=== PATIENT | female | born 1975 | race Caucasian/White ===

== ENCOUNTER 2019-06-08 14:59 | Outpatient (CLI) | payer OTHER, SELFPAY ==
--- NOTE | ~2019-06-08 | MM_ITS ---
EXAMINATION: MM screening cody BI w mary jane HISTORY: Screening mammogram, family history of breast cancer in her mother and sister. TECHNIQUE: Craniocaudal and mediolateral oblique 3-D tomosynthesis images were obtained and synthetic 2-D images were generated. CAD analysis was submitted and interpreted. COMPARISON: 06/21/2018, 05/18/2018, 04/28/2018, 02/13/2017 BREAST PARENCHYMAL COMPOSITION: There are scattered areas of fibroglandular density. FINDINGS: Biopsy markers are present in the middle third of the upper outer quadrant of the right rodney ast. There is no evidence of suspicious mass, calcification, or architectural distortion to suggest m alignancy in either breast. There has been no suspicious interval change. IMPRESSION: 1. No mammographic evidence of malignancy. 2. Recommend routine screening mammography in one year. BI-RADS Category 1: Negative Reviewed, dictated and finalized at location A. HANDISE PLANNER
== END 2019-06-08 15:00 | disposition home or self-care (01) ==
LOC: ANHIMG 15:00
PROVIDERS: PCP Family Medicine; Visit Provider Nurse Practitioner Family
DX: Z12.31 Encounter for screening mammogram for malignant neoplasm of breast (principal)
CPT/HCPCS: 77063; 77067

== ENCOUNTER 2019-10-26 12:44 | Outpatient (CLI) | payer OTHER, SELFPAY ==
--- NOTE | ~2019-10-26 | MR_ITS ---
EXAMINATION: MR lumbar spine wo con EXAM DATE: 10/26/2019 13:26 INDICATION: Anesthesia of skin. TECHNIQUE: Multi-sequential, multiplanar MR images of the lumbar spine were obtained without contrast . Sagittal T1, T2, T2 fat saturation images. Axial T2 weighted images. Comparison is made to prior examination from 04/13/2008. FINDINGS: There is mild to moderate disc disease at L5-S1, mild disc disease at L4-5. There is rudime ntary S1-2 disc. The conus medullaris terminates at the L1/2 level and has normal signal intensity an d morphology. Vertebral body heights are maintained. The vertebral bodies are aligned in the AP dime nsion. Paraspinal soft tissue is unremarkable. Level by level evaluation: L1-L2: Disc does not extend beyond the endplate margin. Facet arthropathy: Mild. Neural foraminal stenosis: No stenosis. Central canal stenosis: No stenosis. L2-L3: Disc does not extend beyond the endplate margin. Facet arthropathy: Mild. Neural foraminal stenosis: No stenosis. Central canal stenosis: No stenosis. L3-L4: There is a minimal diffuse disc bulge with superimposed far left protrusion into the neural fo ramina causing some mass effect on the exiting L3 nerve root. There may be mild edema within this ne ural foramina, could indicate this recently developed. Facet arthropathy: Mild. Neural foraminal stenosis: Mild to moderate left, mild right. Central canal stenosis: Mild. L4-L5: There is a mild diffuse disc bulge asymmetric to the right Facet arthropathy: Mild bilateral. Neural foraminal stenosis: Mild right. Central canal stenosis: Mild. L5-S1: There is a mild diffuse disc bulge. Facet arthropathy: Mild to moderate bilateral. Neural foraminal stenosis: Mild to moderate left, mild right. Central canal stenosis: Mild. IMPRESSION: L3-4 far left disc protrusion causing some mass effect on the exiting L3 nerve root. Prob ably some inflammation/edema in this neural foramina as well. Could consider conservative treatment w ith anti-inflammatories given that there is only mild to moderate neural foraminal stenosis. Reviewed, dictated and finalized at location A. IMPRESSION: L3-4 far left disc protrusion causing some mass effect on the exiti ng L3 nerve root. Probably some inflammation/edema in this neural foramina as w ell. Could consider conservative treatment with anti-inflammatories given that there is only mild to moderate neural foraminal stenosis.
== END 2019-10-26 12:45 | disposition home or self-care (01) ==
LOC: ANHIMG 12:46
PROVIDERS: PCP Family Medicine; Visit Provider Nurse Practitioner Family
DX: R20.0 Anesthesia of skin (principal); M51.26 Other intervertebral disc displacement, lumbar region
CPT/HCPCS: 72148

== ENCOUNTER 2020-03-15 07:30 | Outpatient (CLI) | payer OTHER, SELFPAY ==
--- NOTE | ~2020-03-15 | US_ITS ---
EXAMINATION: US right upper quadrant EXAM DATE: 03/15/2020 08:26 INDICATION: Abnormal results of liver function studies . TECHNIQUE: Multiple grayscale and Doppler images of the abdomen right upper quadrant were obtained (b y a technologist who performed the scan) and subsequently reviewed. There is no prior study for lisa holm. FINDINGS: The pancreatic head and body are normal in appearance. The pancreatic tail is not visualized. Mildl y echogenic liver parenchyma, hepatic steatosis. There are no focal liver lesions identified. Ther e is no evidence of intrahepatic biliary duct dilation. Portal venous flow was seen in the hepatoped al, normal direction and has normal Doppler waveform. No right-sided hydronephrosis. Common bile duct measures 4 mm, which is normal. The gallbladder wall is normal in thickness, with ex pected amount of distention. No sonographic evidence of pericholecystic fluid. There is no cholelit hiases. Technologist performing exam reports patient did not demonstrate sonographic Shoemaker's sign. Please note that this sign is less reliable in patients who have received pain medication. IMPRESSION: 1. Hepatic steatosis. Reviewed, dictated and finalized at location A. R WORKER IMPRESSION: 1. Hepatic steatosis.
== END 2020-03-15 07:31 | disposition home or self-care (01) ==
PROVIDERS: PCP Family Medicine; Visit Provider Family Medicine
DX: K76.0 Fatty (change of) liver, not elsewhere classified (principal)
CPT/HCPCS: 76705

== ENCOUNTER 2020-11-07 08:32 | Outpatient (CLI) | payer OTHER, SELFPAY ==
--- NOTE | ~2020-11-07 | MM_ITS ---
EXAMINATION: MM screening cody BI w mary jane HISTORY: Screening mammogram, family history of breast cancer in her mother. TECHNIQUE: Craniocaudal and mediolateral oblique 3-D tomosynthesis images were obtained and synthetic 2-D images were generated. CAD analysis was submitted and interpreted. COMPARISON: 06/08/2019, 05/18/2018, 04/28/2018 BREAST PARENCHYMAL COMPOSITION: There are scattered areas of fibroglandular density. FINDINGS: There is no evidence of suspicious mass, calcification, or architectural distortion to sugg est malignancy in either breast. There has been no suspicious interval change. IMPRESSION: 1. No mammographic evidence of malignancy. 2. Recommend routine screening mammography in one year. BI-RADS Category 1: Negative Reviewed, dictated and finalized at location A.
== END 2020-11-07 08:33 | disposition home or self-care (01) ==
LOC: ANHIMG 08:34
PROVIDERS: PCP Family Medicine; Visit Provider Family Medicine
DX: Z12.31 Encounter for screening mammogram for malignant neoplasm of breast (principal)
CPT/HCPCS: 77063; 77067

== ENCOUNTER 2021-12-26 07:19 | Outpatient (CLI) | payer OTHER, SELFPAY ==
--- NOTE | ~2021-12-26 | MM_ITS ---
EXAMINATION: MM screening cody BI w mary jane HISTORY: Screening TECHNIQUE: Craniocaudal and mediolateral oblique 3-D tomosynthesis images were obtained and synthetic 2-D images were generated. CAD analysis was submitted and interpreted. COMPARISON: Comparison to multiple prior studies sequentially, with oldest reviewed study dated 02/01. BREAST PARENCHYMAL COMPOSITION: There are scattered areas of fibroglandular density. FINDINGS: There is a possible new mass in the subareolar location of the right breast adjacent to 2 s eparate biopsy clips. The left breast is stable without evidence for malignancy. IMPRESSION: 1. Possible new right subareolar breast mass. 2. Additional mammographic views and possible breast ultrasound are recommended. BI-RADS Category 0: Incomplete: Needs additional imaging evaluation. Reviewed, dictated and finalized at location A. IMPRESSION: 1. Possible new right subareolar breast mass. 2. Additional mammographic views and possible breast ultrasound are recommended . BI-RADS Category 0: Incomplete: Needs additional imaging evaluation.
== END 2021-12-26 07:20 | disposition home or self-care (01) ==
PROVIDERS: PCP Family Medicine; Visit Provider Family Medicine
DX: Z12.31 Encounter for screening mammogram for malignant neoplasm of breast (principal); R92.8 Other abnormal and inconclusive findings on diagnostic imaging of breast
CPT/HCPCS: 77063; 77067

== ENCOUNTER 2022-01-13 12:48 | Outpatient (CLI) | payer OTHER, SELFPAY ==
--- NOTE | ~2022-01-13 | MMUS_ITS ---
EXAMINATION: MM diagnostic cody RT w mary jane, US breast RT complete HISTORY: Possible new right subareolar breast mass suggested on 12/26/2021 screening mammogram examina tion TECHNIQUE: Additional 3-D tomosynthesis images of the right breast were performed and synthetic 2-D i mages were generated. CAD analysis was submitted and interpreted. High resolution complete right laura st ultrasound including all 4 quadrants and subareolar area was performed. COMPARISON: 12/26/2021 bilateral screening mammogram FINDINGS: MAMMOGRAPHIC FINDINGS: There are 2 biopsy markers on the right; history of 2 prior benign right breast biopsies. Possible circumscribed 7.8 mm mass is suggested in the upper central right breast 3 cm deep to the n ipple. ULTRASOUND: 12:00: Approximately 4 x 8 mm circumscribed complicated mixed cystic and solid lesion. This is most l ikely benign. 6 month diagnostic right mammogram and right targeted breast ultrasound follow-up are r ecommended. 6:00: 4 x 7 x 8 mm circumscribed benign-appearing intramammary lymph node. IMPRESSION: 1. Probable benign findings 2. 6 month diagnostic right mammogram and targeted 12:00 right breast follow-up examination are recom mended BI-RADS category 3, probably benign findings. Reviewed, dictated and finalized at location A. IMPRESSION: 1. Probable benign findings 2. 6 month diagnostic right mammogram and targeted 12:00 right breast follow-up examination are recommended BI-RADS category 3, probably benign findings.
== END 2022-01-13 12:49 | disposition home or self-care (01) ==
PROVIDERS: PCP Family Medicine; Visit Provider Nurse Practitioner Family
DX: N63.10 Unspecified lump in the right breast, unspecified quadrant (principal); R92.8 Other abnormal and inconclusive findings on diagnostic imaging of breast
CPT/HCPCS: 76641; 77061; 77065; G0279

== ENCOUNTER 2022-04-10 10:02 | Outpatient (CLI) | payer OTHER, SELFPAY ==
--- NOTE | 2022-04-10 11:00 | NEURO_ITS ---
Impression: # History of bilateral hand numbness. # Bilateral Carpal Tunnel Syndrome, left worse than right. # Normal needle/EMG exam. # Clinical correlation recommended. Motor Nerve Conduction Upper Extremities Median Nerve Conduction Velocity (m/sec) Terminal Latency (msec) Response Voltage(mV) Elbow-Wrist Wrist Elbow Wrist Right 44 4.1 4 4 Left 50 8.4 3 3 Ulnar Nerve Conduction Velocity (m/sec) Terminal Latency (msec) Response Voltage(mV) Above Elbow Below Elbow Wrist Above Elbow Below Elbow Wrist Right 60 61 2.0 6 6 7 Left 61 62 2.3 5 5 7 F-Wave Latency Median (ms) Ulnar (ms) Right 26.3 25.7 Left 26.6 25.7 Sensory Nerve Conduction Upper Extremities Median Nerve Stimulation Terminal Latency (msec) Wrist/Digit Response Voltage (uV) Wrist Right 6.4/6.3 19/7 Left 7.8/7.9 17/20 Ulnar Nerve Stimulation Terminal Latency (msec) Wrist/Digit Response Voltage (uV) Wrist Right 2.5 32 Left 2.3 45 Radial Nerve Terminal Latency (msec) Response Voltage(mV) Right 1.9 43 Left 1.7 36 Left Right Muscles Examined Fibrillation Fasciculation Scarcity Voltage Duration Left Right Left Right Left Right Left Right Left Right Deltoid Biceps X X Brachioradialis Triceps X X Pronator Teres X X Ext Indicis X X Ext Digitorum X X Abd Poll Brev X X 1st Dorsal Interosseus Paraspinals MTDD
== END 2022-04-10 10:03 | disposition home or self-care (01) ==
PROVIDERS: PCP Family Medicine; Visit Provider Physician Assistant Medical
DX: R20.0 Anesthesia of skin (principal); G56.03 Carpal tunnel syndrome, bilateral upper limbs
CPT/HCPCS: 95886; 95911

== ENCOUNTER 2022-06-23 01:06 | Day surgery (SDC) | payer OTHER, SELFPAY ==
--- NOTE | 2022-06-12 15:30 | SUR.PREOP ---
Addendum entered by Michaela French RN 06/12/22 15:43: CALLED PATIENT BACK AND INSTRUCTED HER THAT SHE CAN CONTINUE HER ASPIRIN & ALEVE UNLESS TOLD OTHERWISE BY DR FERNANDEZ. Original Note: Report to the Outpatient Waiting Room, entrance under the green pavilion located off [facility], at time 1200 on date 06/23/22. Planned Procedure Time: 1400. Time changes happen often and if your time is changed the preop area will call you the afternoon before. - You and your visitor will be asked to self-screen and do not enter if you have any COVID symptoms. - Only one visitor is requested with a max of two and NO children visitors are allowed at this time. - The patient visitor may be requested to leave or wait in car when not with patient due to distancing restrictions. - A mask is optional within the hospital at this time. Patients may have clear liquids (water, carbonated beverages, clear teas, apple juice) until 3 hours prior to surgery with a maximum of 20 ounces. - NO CLEAR LIQUIDS AFTER 1100 - No food from midnight until time of surgery - Infants may have breast milk until 4 hours before surgery, infant formula 6 hours prior to surgery. - Children will be allowed to drink immediately following surgery. If applicable, please bring a bottle or sippy cup to assist with drinking. Juice, water, soda, and popsicles are readily available. For infants on formula, please bring formula the day of surgery. Pacifiers are allowed. Take the following medications with a SIP of water the morning of surgery: ALPRAZOLAM, BUSPIRONE, METOPROLOL DO NOT STOP ANY OF YOUR OTHER PRESCRIPTION MEDICATIONS PRIOR TO SURGERY ?EXCEPT THE FOLLOWING Medications to discontinue per physician INSTRUCTED PATIENT TO ASK DR FERNANDEZ ABOUT CONTINUING ASPIRIN & ALEVE Date to take last dose STOP VITAMINS & SUPPLEMENTS 06/20/22 Please no make-up, nail liberian, hairspray, perfume, deodorant, or body powder the day of surgery. No jewelry (including any body piercings) or valuables the day of surgery, leave them at home. Please take a shower or bath the night before, or the morning of, surgery with an antibacterial soap. Wear comfortable, loose fitting clothing. Children are encouraged to wear pajamas. - Jewelry must be removed prior to entering the operating room. Rings and piercings that are not removed may be cut off. - The hospital will not accept responsibility for valuables. - Please leave all valuables, including medications, at home the day of surgery. If you are going home after surgery, a licensed lifter/driver must drive you home. - NO public transportation without another adult if you receive anesthesia. - We recommend that an adult stay with you for 24 hours following discharge. - We also recommend that you do not drive, make important decision, drink alcoholic beverages, or take any drugs that were not prescribed by your health care provider for at least 24 hours after your discharge time. For Pediatric surgeries, we recommend two adults accompany the child home. Follow any additional instructions given to you from your surgeon. If you or anyone in your household have experienced Covid symptoms in the past week, please notify your surgeon or the nurse liaison at the phone number below for possible testing. Telephone instructions given to ANABEL HERNADEZ and asked if any additional questions and then verbalized understanding. Patient advised to call surgeon office or pre surgery nurse liaison [phone] if any additional questions.
[2022-06-12 15:44] VITALS: BMI 36.3
--- NOTE | 2022-06-23 09:23 | WPDANESEPPF ---
Anes - Initial Pre Proc Eval Procedure: Operation Date: 06/23/22 14:00 Proposed Procedures p Left Carpal Tunnel Release - Rhett Marin MD Date/Time: 06/23/22 09:23 Surgeon: Rhett Marin MD Pre Op Diagnosis: left carpal tunnel syndrome Patient Data Age: 47 Gender: F Height: 1.68 m Weight: 102.3 kg Allergies Allergy/AdvReac Type Severity Reaction Status Date / Time amoxicillin Allergy Intermediate Hives Verified 06/23/22 12:07 hydroxyzine Allergy Intermediate Chest Pain Verified 06/23/22 12:07 Home Medications Medication Instructions Recorded Confirmed Type aspirin 81 mg tablet,delayed 81 mg PO DAILY 12/03/20 06/23/22 History release (Adult Aspirin Regimen) magnesium gluconate 27 mg 27 mg PO BID 12/03/20 06/23/22 History magnesium (500 mg) tablet (Mag-G) multivitamin 1 tablet PO DAILY 12/03/20 06/23/22 History alprazolam 0.25 mg tablet (Xanax) 0.25 mg PO BID PRN anxiety #20 tabs 12/02/21 06/23/22 Rx lisinopril 10 mg tablet 20 mg PO DAILY #180 tabs 02/01/22 06/23/22 Rx metoprolol tartrate 50 mg tablet 50 mg PO Q12H #180 tabs 02/03/22 06/23/22 Rx buspirone 15 mg tablet 15 mg PO TID #270 tabs 05/20/22 06/23/22 Rx cyclobenzaprine 10 mg tablet 10 mg PO TID PRN muscle spasm #30 06/06/22 06/23/22 Rx tabs simvastatin 20 mg tablet 20 mg PO HS 06/12/22 06/23/22 History nystatin 100,000 unit/gram topical 1 applic topical BID #60 grams 06/13/22 06/23/22 Rx powder nystatin-triamcinolone 100,000 1 applic topical BID #30 grams 06/13/22 06/23/22 Rx unit/g-0.1 % topical cream Patient hx anesthesia problems: none Family hx anesthesia problems: none Results Review: All pre-operative results and documents have been reviewed as part of the pre-operative evaluation. 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 81mg aspirin Mixed hyperlipidemia Obesity Surgical History Surgical History History of back surgery 2008- herniated disk repair History of breast biopsy (06/07/18) (R) breast--benign History of colposcopy with cervical biopsy 10/28/12 QUANG I 05/26/13 chronic cervicitis & squamous metaplasia History of oral surgery 2010--benign growth removed from roof of mouth Family History Family History Mother Family history of malignant neoplasm of breast in first degree relative Breast cancer Cancer Grandparent Hypertension Cerebrovascular accident maternal grandfather Acute myocardial infarction Carcinoma of colon paternal grandfather Cancer Heart disease Father Hypertension PTSD (post-traumatic stress disorder) Alcoholism Depression Sibling Carcinoma of colon Asthma Cancer Other Cancer Daughter Depression Social History Social History Smoking status: Never smoker Second hand tobacco smoke exposure: No Alcohol intake: current Drinks per week: 2 Substance use: never Substance use type: does not use Living arrangements: alone Additional living arrangements comments: Occupation/Education: occupation 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
[2022-06-23 11:32] VITALS: BP 180/90; PULSE 65; RESP 18; TEMP 36.6; O2SAT 100
[2022-06-23] MEDS: KETOROLAC 15 MG/ML VIAL (*BKC) IV PUSH (12:03)
[2022-06-23] MEDS: ACETAMINOPHEN 500 MG TABLET 1000 MG PO (12:03)
[2022-06-23] MEDS: LACTATED RINGERS 1,000 ML 30 ML IV CONT (12:03)
--- NOTE | 2022-06-23 12:03 | WPDHPUPDATE1 ---
History and Physical Update Update Date/Time: 06/23/22 12:03 History and Physical has been reviewed, including an updated exam of the patient. There are NO changes in the patient's condition. Risks, benefits, and alternatives have been discussed and questions answered. Patient agrees to proceed with procedure.
[2022-06-23] MEDS: ceFAZolin 2 GM/D5W 50 ML 2 GM/50 ML BAG IVPB (12:19)
[2022-06-23] MEDS: BUPIVACAINE/EPINEPHRINE 0.5% 10 ML VIAL 5 ML INFILTRATE (12:44)
[2022-06-23 12:54] VITALS: BP 119/73; PULSE 70; RESP 16; O2SAT 98
--- NOTE | 2022-06-23 12:59 | P.OP_ITS ---
Procedure Note - Detailed Date of Procedure 06/23/22 Pre-op Diagnosis left carpal tunnel syndrome Post-op Diagnosis Same Procedure Performed left carpal tunnel release Surgeon Rhett Marin MD Anesthesia MAC and Local Description of Procedure The patient was identified and proper side identified. After being taken to the operating room and transferred to the OR table, a nonsterile tourniquet was placed high on the left upper extremity, which was prepped and draped in the usual sterile fashion. After IV sedation was administered, the subcutaneous tissue in the area of the incision was infiltrated with several cc of 0.25% Marcaine and epinephrine solution. The extremity was exsanguinated and tourniq uet inflated to 250 mmHg remaining up for approximately three minutes. A longitudinal incision was over the ulnar aspect of the transverse carpal ligament. Subcutaneous tissue was bluntly dissected down to the ligament, which was identified and then transected longitudinally in line with the incision releasing the contents of the carpal canal. The tourniquet was released. Hemostasis was carried out with bipolar electrocautery. The median nerve had appropriate blush with reperfusion. The wound was irrigated with sterile saline solution. Skin edges were reapproximated with four 0 nylon suture and a sterile dressing was applied. A well-padded volar wrist splint was fashioned with the wrist in a neutral position. Estimated Blood Loss 1 Tourniquet Time 3 Drains No Packing No Pathology None sent Complications No immediate complications Condition Stable Disposition PACU [facility] Billing Surgery - Charge Forward: Surgery Billing ([id number])
[2022-06-23 13:24] VITALS: BP 121/77; PULSE 65; RESP 14
[2022-06-23 13:54] VITALS: BP 116/67; PULSE 69; RESP 14
[2022-06-23 14:20] VITALS: BP 119/72; PULSE 75; RESP 14
== END 2022-06-23 14:30 | disposition home or self-care (01) ==
PROVIDERS: PCP Family Medicine; Visit Provider Orthopaedic Surgery
PROC: (CPT 64721; principal; 2022-06-23 14:00)
DX: G56.02 Carpal tunnel syndrome, left upper limb (principal); I10 Essential (primary) hypertension; E78.2 Mixed hyperlipidemia; F41.9 Anxiety disorder, unspecified; Z79.82 Long term (current) use of aspirin; E66.9 Obesity, unspecified; Z68.35 Body mass index [BMI] 35.0-35.9, adult
CPT/HCPCS: 64721; A9270; J0690; J1885; J2250; J2405; J2704; J3010; J7120

== ENCOUNTER 2022-07-07 00:56 | Day surgery (SDC) | payer OTHER, SELFPAY ==
[2022-06-25 15:18] VITALS: BMI 35.5
--- NOTE | 2022-06-25 15:24 | PC.NURSE ---
Report to the Outpatient Waiting Room, entrance under the green pavilion located off [facility], at 0830 on 07/07/22. Planned Procedure Time: 1030. Time changes happen often and if your time is changed the preop area will call you the afternoon before. - You and your visitor will be asked to self-screen and do not enter if you have any COVID symptoms. - Only one visitor is requested with a max of two and NO children visitors are allowed at this time. - The patient visitor may be requested to leave or wait in car when not with patient due to distancing restrictions. - A mask is optional within the hospital at this time. Patients may have clear liquids (water, carbonated beverages, clear teas, apple juice) until 3 hours prior to surgery with a maximum of 20 ounces. - No food from midnight until time of surgery. Take the following medications with a SIP of water the morning of surgery: Alprazolam/Buspirone/Metoprolol DO NOT STOP ANY OF YOUR OTHER PRESCRIPTION MEDICATIONS PRIOR TO SURGERY ?EXCEPT THE FOLLOWING Medications to discontinue per physician Call Dr. Marin re: Aspirin and Aleve Date to take last dose 3 days prior to surgery for all vitamins/supplements Please no make-up, nail hebrew, hairspray, perfume, deodorant, or body powder the day of surgery. No jewelry (including any body piercings) or valuables the day of surgery, leave them at home. Please take a shower or bath the night before, or the morning of, surgery with an antibacterial soap. Wear comfortable, loose fitting clothing. - Jewelry must be removed prior to entering the operating room. Rings and piercings that are not removed may be cut off. - The hospital will not accept responsibility for valuables. - Please leave all valuables, including medications, at home the day of surgery. If you are going home after surgery, a licensed interstate bus driver must drive you home. - NO public transportation without another adult if you receive anesthesia. - We recommend that an adult stay with you for 24 hours following discharge. - We also recommend that you do not drive, make important decision, drink alcoholic beverages, or take any drugs that were not prescribed by your health care provider for at least 24 hours after your discharge time. Follow any additional instructions given to you from your surgeon. If you or anyone in your household have experienced Covid symptoms in the past week, please notify your surgeon or the nurse liaison at the phone number below for possible testing. Telephone instructions given to patient and asked if any additional questions and then verbalized understanding. Patient advised to call surgeon office or pre surgery nurse liaison [phone] if any additional questions.
[2022-07-07 09:20] VITALS: BP 132/90; PULSE 61; RESP 16; TEMP 36.2; O2SAT 100
--- NOTE | 2022-07-07 10:06 | WPDANESEPPF ---
Anes - Initial Pre Proc Eval Procedure: Operation Date: 07/07/22 10:30 Proposed Procedures p Right Carpal Tunnel Release - Rhett Marin MD Date/Time: 07/07/22 10:06 Surgeon: Rhett Marin MD Pre Op Diagnosis: right carpal tunnel syndrome Patient Data Age: 47 Gender: F Height: 1.68 m Weight: 99.79 kg Allergies Allergy/AdvReac Type Severity Reaction Status Date / Time amoxicillin Allergy Intermediate Hives Verified 07/07/22 10:03 hydroxyzine Allergy Intermediate Chest Pain Verified 07/07/22 10:03 Home Medications Medication Instructions Recorded Confirmed Type aspirin 81 mg tablet,delayed 81 mg PO DAILY 12/03/20 07/07/22 History release (Adult Aspirin Regimen) magnesium gluconate 27 mg 27 mg PO BID 12/03/20 07/02/22 History magnesium (500 mg) tablet (Mag-G) multivitamin 1 tablet PO DAILY 12/03/20 07/07/22 History alprazolam 0.25 mg tablet (Xanax) 0.25 mg PO BID PRN anxiety #20 tabs 12/02/21 07/07/22 Rx lisinopril 10 mg tablet 20 mg PO DAILY #180 tabs 02/01/22 07/07/22 Rx metoprolol tartrate 50 mg tablet 50 mg PO Q12H #180 tabs 02/03/22 07/07/22 Rx buspirone 15 mg tablet 15 mg PO TID #270 tabs 05/20/22 07/07/22 Rx cyclobenzaprine 10 mg tablet 10 mg PO TID PRN muscle spasm #30 06/06/22 07/07/22 Rx tabs simvastatin 20 mg tablet 20 mg PO HS 06/12/22 07/07/22 History nystatin 100,000 unit/gram topical 1 applic topical BID #60 grams 06/13/22 07/07/22 Rx powder nystatin-triamcinolone 100,000 1 applic topical BID #30 grams 06/13/22 07/07/22 Rx unit/g-0.1 % topical cream tramadol 50 mg tablet 50 mg PO Q6H PRN pain #20 tabs 06/23/22 07/07/22 Rx Patient hx anesthesia problems: none Family hx anesthesia problems: none Results Review: All pre-operative results and documents have been reviewed as part of the pre-operative evaluation. [facility] Past Medical History Medical History Abnormal Pap smear of cervix 05/05/13 ascus (+) hpv Anxiety BMI 32.0-32.9,adult BMI 33.0-33.9,adult BMI greater than 30 Carpal tunnel syndrome, bilateral Essential (primary) hypertension History of hypertension HPV in female Hx of care home use of blood thinners 81mg aspirin Mixed hyperlipidemia Obesity Surgical History Surgical History History of back surgery 2008- herniated disk repair History of breast biopsy (06/07/18) (R) breast--benign History of carpal tunnel surgery of left wrist left carpal tunnel release June 23, 2022 History of colposcopy with cervical biopsy 10/28/12 QUANG I 05/26/13 chronic cervicitis & squamous metaplasia History of oral surgery 2010--benign growth removed from roof of mouth Family History Family History Mother Family history of malignant neoplasm of breast in first degree relative Breast cancer Cancer Grandparent Hypertension Cerebrovascular accident maternal grandfather Acute myocardial infarction Carcinoma of colon paternal grandfather Cancer Heart disease Father Hypertension PTSD (post-traumatic stress disorder) Alcoholism Depression Sibling Carcinoma of colon Asthma Cancer Other Cancer Daughter Depression Social History Social History Smoking status: Never smoker Second hand tobacco smoke exposure: No Alcohol intake: current Drinks per week: 2 Substance use: never Living arrangements: alone Occupation/Education: occupation 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
[2022-07-07] MEDS: LACTATED RINGERS 1,000 ML 30 ML IV CONT (10:10)
[2022-07-07] MEDS: KETOROLAC 15 MG/ML VIAL (*BKC) IV PUSH (10:51)
[2022-07-07] MEDS: ACETAMINOPHEN 500 MG TABLET 1000 MG PO (10:52)
--- NOTE | 2022-07-07 11:06 | WPDHPUPDATE1 ---
History and Physical Update Update Date/Time: 07/07/22 11:06 History and Physical has been reviewed, including an updated exam of the patient. There are NO changes in the patient's condition. Risks, benefits, and alternatives have been discussed and questions answered. Patient agrees to proceed with procedure.
[2022-07-07] MEDS: ceFAZolin 2 GM/D5W 50 ML 2 GM/50 ML BAG IVPB (12:41)
[2022-07-07] MEDS: BUPIVACAINE/EPINEPHRINE 0.25% 50 ML VIAL 10 ML INFILTRATE (12:59)
[2022-07-07 13:19] VITALS: BP 150/74; PULSE 60; RESP 14; O2SAT 100
--- NOTE | 2022-07-07 13:21 | W.PM.PROC2 ---
Procedure Note - Detailed Date of Procedure 07/07/22 Pre-op Diagnosis right carpal tunnel syndrome Post-op Diagnosis Same Procedure Performed right carpal tunnel release Surgeon Rhett Marin MD Review Trainer Hawa Salazar Anesthesia MAC and Local Description of Procedure The patient was identified and proper side identified. After being taken to the operating room and transferred to the OR table, a nonsterile tourniquet was placed high on the are right upper extremity, which was prepped and draped in the usual sterile fashion. Prior to draping, the sutures removed from the left hand carpal tunnel incision. The wound itself is well approximated and healing nicely. After IV sedation was administered, the subcutaneous tissue in the area of the incision was infiltrated with several cc of 0.25% Marcaine and epinephrine solution. The extremity was exsanguinated and tourniquet inflated to Two hundred fifty mmHg remaining up for approximately four minutes. A longitudinal incision was over the ulnar aspect of the transverse carpal ligament. Subcutaneous tissue was bluntly dissected down to the ligament, which was identified and then transected longitudinally in line with the incision releasing the contents of the carpal canal. The tourniquet was released. Hemostasis was carried out with bipolar electrocautery. The median nerve had appropriate blush with reperfusion. The wound was irrigated with sterile saline solution. Skin edges were reapproximated with four 0 nylon suture and a sterile dressing was applied. A well-padded volar wrist splint was fashioned with the wrist in a neutral position. Estimated Blood Loss 1 Tourniquet Time 4 Drains No Packing No Pathology None sent Complications No immediate complications Condition Stable Disposition PACU [facility] Billing Surgery - Charge Forward: Surgery Billing ([id number])
[2022-07-07 13:45] VITALS: BP 155/81; PULSE 50; RESP 14; O2SAT 100
[2022-07-07 14:15] VITALS: BP 161/81; PULSE 46; RESP 16; O2SAT 100
[2022-07-07 14:45] VITALS: BP 156/90; PULSE 57; RESP 16; O2SAT 100
== END 2022-07-07 15:11 | disposition home or self-care (01) ==
PROVIDERS: PCP Family Medicine; Visit Provider Orthopaedic Surgery
PROC: (CPT 64721; principal; 2022-07-07 10:30)
DX: G56.01 Carpal tunnel syndrome, right upper limb (principal); I10 Essential (primary) hypertension; F41.9 Anxiety disorder, unspecified; E78.2 Mixed hyperlipidemia; E66.9 Obesity, unspecified; Z68.35 Body mass index [BMI] 35.0-35.9, adult; Z79.82 Long term (current) use of aspirin
CPT/HCPCS: 64721; A9270; J0690; J1100; J1885; J2250; J2405; J2704; J3010; J7120

== ENCOUNTER 2022-07-14 11:27 | Outpatient (CLI) | payer OTHER, SELFPAY ==
--- NOTE | ~2022-07-14 | MMUS_ITS ---
EXAMINATION: MM diagnostic cody RT w mary jane, US breast RT limited HISTORY: Follow-up of 4 x 8 mm circumscribed complicated mixed cystic and solid lesion at 12:00 posit ion on 01/13/2022 right breast ultrasound examination TECHNIQUE: Full field ML and spot ML, MLO and CC 3-D tomosynthesis images of the right breast were pe rformed and synthetic 2-D images were generated. CAD analysis was submitted and interpreted. High res olution targeted right breast ultrasound examination at 12:00. COMPARISON: 01/13/2022 diagnostic right mammogram and complete right breast ultrasound 12/26/2021, 11/07/2020 bilateral screening mammogram examinations BREAST PARENCHYMAL COMPOSITION: There are scattered areas of fibroglandular density. FINDINGS: MAMMOGRAPHIC FINDINGS: 2 biopsy markers are again noted on the right; history of prior benign right breast biopsies. No suspicious mass or interval architectural distortion, malignant calcification, skin thickening or retraction or significant change since 11/07/2020. ULTRASOUND: No suspicious mass or shadowing is noted 12:00 IMPRESSION: 1. Resolution of prior right breast complex mass since 01/13/2022; no mammographic or sonographic evid ence of malignancy 2. Routine mammographic screening is recommended. BI-RADS Category 1: Negative Reviewed, dictated and finalized at location A. IMPRESSION: 1. Resolution of prior right breast complex mass since 01/13/2022; no mammograph ic or sonographic evidence of malignancy 2. Routine mammographic screening is recommended. BI-RADS Category 1: Negative
== END 2022-07-14 11:28 | disposition home or self-care (01) ==
LOC: ANHIMG 11:29
PROVIDERS: PCP Family Medicine; Visit Provider Physician Assistant Medical
DX: N63.10 Unspecified lump in the right breast, unspecified quadrant (principal)
CPT/HCPCS: 76642; 77061; 77065; G0279

== ENCOUNTER 2023-02-16 10:33 | Outpatient (CLI) | payer OTHER, SELFPAY ==
--- NOTE | ~2023-02-16 | US_ITS ---
EXAMINATION: US abdomen limited DATE: 02/16/2023 11:34 INDICATION: Fatty change of liver, not elsewhere classified. TECHNIQUE: Multiple grayscale and Doppler ultrasound images of the abdomen were obtained. COMPARISON: Abdomen ultrasound 03/15/2020 FINDINGS: The visualized portions of the head and body of the pancreas are normal. There is diffuse h epatic steatosis. There is normal flow in main portal vein. The gallbladder is normal in size and con tains sludge. No gallstones or gallbladder wall thickening. There was no sonographic Shoemaker sign. The common duct is normal and measures 3 mm. IMPRESSION: 1. Diffuse hepatic steatosis. Reviewed, dictated and finalized at location E.
== END 2023-02-16 10:34 | disposition home or self-care (01) ==
PROVIDERS: PCP Family Medicine; Referring Provider Nurse Practitioner Family; Visit Provider Physician Assistant Medical
DX: K76.0 Fatty (change of) liver, not elsewhere classified (principal); R74.01 Elevation of levels of liver transaminase levels
CPT/HCPCS: 76705

== ENCOUNTER 2023-04-06 06:00 | Day surgery (SDC) | payer OTHER, SELFPAY ==
[2023-02-26 08:09] VITALS: BMI 37.6
[2023-03-18 07:44] VITALS: BMI 35.6
[2023-04-06 06:57] VITALS: BP 185/106; PULSE 72; RESP 16; TEMP 36.3; O2SAT 100
--- NOTE | 2023-04-06 07:09 | WPDANESEPPF ---
Anes - Initial Pre Proc Eval Procedure: Operation Date: 04/06/23 08:00 Proposed Procedures p Diagnostic Colonoscopy - Gordo Swan MD Date/Time: 04/06/23 07:09 Surgeon: Gordo Swan MD Pre Op Diagnosis: Family HX Malignant Neoplasm of Digestive Organs Patient Data Age: 48 Gender: F Height: 1.68 m Weight: 100 kg Last Vital Signs Temp 36.3 C L 04/06/23 06:57 Pulse 72 04/06/23 06:57 Resp 16 04/06/23 06:57 BP 185/106 H 04/06/23 06:57 Pulse Ox 100 04/06/23 06:57 O2 Del Method Room Air 04/06/23 06:57 Allergies Allergy/AdvReac Type Severity Reaction Status Date / Time amoxicillin Allergy Intermediate Hives Verified 04/06/23 06:58 hydroxyzine Allergy Intermediate Chest Pain Verified 04/06/23 06:58 Home Medications Medication Instructions Recorded Confirmed Type aspirin 81 mg tablet,delayed 81 mg PO DAILY 12/03/20 04/06/23 History release (Adult Aspirin Regimen) magnesium gluconate 27 mg 27 mg PO BID 12/03/20 04/06/23 History magnesium (500 mg) tablet (Mag-G) alprazolam 0.25 mg tablet (Xanax) 0.25 mg PO BID PRN anxiety #20 tabs 12/02/21 04/06/23 Rx buspirone 15 mg tablet 15 mg PO TID #270 tabs 05/20/22 04/06/23 Rx nystatin 100,000 unit/gram topical 1 applic topical BID #60 grams 06/13/22 04/06/23 Rx powder nystatin-triamcinolone 100,000 1 applic topical BID #30 grams 06/13/22 04/06/23 Rx unit/g-0.1 % topical cream metoprolol tartrate 50 mg tablet 50 mg PO Q12H #180 tabs 10/27/22 04/06/23 Rx vitamin E mixed 400 unit capsule 400 unit PO DAILY 01/01/23 04/06/23 History simvastatin 20 mg tablet 20 mg PO HS #90 tabs 01/26/23 04/06/23 Rx multivitamin (Daily Multi-Vitamin 1 tablet PO DAILY 01/27/23 04/06/23 History tablet) cyclobenzaprine 10 mg tablet 10 mg PO TID PRN muscle spasm #30 03/15/23 04/06/23 Rx tabs lisinopril 10 mg tablet 20 mg PO DAILY #180 tabs 04/05/23 04/06/23 Rx Patient hx anesthesia problems: none Family hx anesthesia problems: none Results Review: All pre-operative results and documents have been reviewed as part of the pre-operative evaluation. 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 Mixed hyperlipidemia Obesity Trigger thumb, right thumb Surgical History Surgical History History of back surgery 2008- herniated disk repair History of breast biopsy (06/07/18) (R) breast--benign History of carpal tunnel surgery of left wrist left carpal tunnel release June 23, 2022 History of carpal tunnel surgery of right wrist Right carpal tunnel release on 07/07/2022 History of colposcopy with cervical biopsy 10/28/12 QUANG I 05/26/13 chronic cervicitis & squamous metaplasia History of oral surgery 2010--benign growth removed from roof of mouth Family History Family History Mother Family history of malignant neoplasm of breast in first degree relative Breast cancer Cancer Grandparent Hypertension Cerebrovascular accident maternal grandfather Acute myocardial infarction Carcinoma of colon paternal grandfather Cancer Heart disease Father Hypertension PTSD (post-traumatic stress disorder) Alcoholism Depression Sibling Carcinoma of colon Asthma Cancer Other Cancer Daughter Depression Social History Social History Smoking status: Never smoker Second hand tobacco smoke exposure: No Alcohol intake: current Drinks per week
[2023-04-06] MEDS: LACTATED RINGERS 1,000 ML 150 ML IV CONT (07:26)
--- NOTE | 2023-04-06 07:51 | PM.HPGS ---
History of Present Illness History of Present Illness Consent: Risks, benefits, and alternatives have been discussed and questions answered. Patient agrees to proceed with procedure. Chief complaint: Family HX Malignant Neoplasm of Digestive Organs Narrative: Luann Garces is a 48 year old female with last colonoscopy 5 years ago, brother had colon cancer Review of Systems Constitutional: Constitutional: Denies headache(s) and Denies weakness Eyes: Eyes: Denies blurry vision ENT: Reports Normal hearing present, Denies headache(s) and Denies neck pain Cardiovascular: Cardiovascular: Denies chest pain and Denies dyspnea Respiratory: Respiratory: Denies dyspnea Gastrointestinal: Gastrointestinal: Reports no additional gastrointestinal complaints Genitourinary: Genitourinary: Denies dysuria Musculoskeletal: Musculoskeletal: Denies neck pain Integumentary/Breasts: Skin/Breast: Denies dry skin Neurologic: Reports Normal hearing present, Denies headache(s) and Denies weakness Psychiatric: Psychiatric: Denies anxiety Endocrine: Endocrine: Denies change in body appearance Hematologic/Lymphatic: Hematologic/Lymphatic: Denies easy bleeding Allergic/Immunologic: Allergic/Immunologic: Denies urticaria PMFSH Past Medical History Medical History Abnormal Pap smear of cervix 05/05/13 ascus (+) hpv Anxiety BMI 32.0-32.9,adult BMI 33.0-33.9,adult BMI 36.0-36.9,adult BMI greater than 30 Carpal tunnel syndrome, bilateral Essential (primary) hypertension Family hx of colon cancer History of hypertension HPV in female 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 Mixed hyperlipidemia Obesity Trigger thumb, right thumb Surgical History Surgical History History of back surgery 2008- herniated disk repair History of breast biopsy (06/07/18) (R) breast--benign History of carpal tunnel surgery of left wrist left carpal tunnel release June 23, 2022 History of carpal tunnel surgery of right wrist Right carpal tunnel release on 07/07/2022 History of colposcopy with cervical biopsy 10/28/12 QUANG I 05/26/13 chronic cervicitis & squamous metaplasia History of oral surgery 2010--benign growth removed from roof of mouth Family History Family History Mother Family history of malignant neoplasm of breast in first degree relative Breast cancer Cancer Grandparent Hypertension Cerebrovascular accident maternal grandfather Acute myocardial infarction Carcinoma of colon paternal grandfather Cancer Heart disease Father Hypertension PTSD (post-traumatic stress disorder) Alcoholism Depression Sibling Carcinoma of colon Asthma Cancer Other Cancer Daughter Depression Social History Social History Smoking status: Never smoker Second hand tobacco smoke exposure: No Alcohol intake: current Drinks per week: 2 Substance use: never Substance use type: does not use Living arrangements: alone Occupation/Education: occupation 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 (if verbalized by the patient): Female Sexual Orientation (if Verbalized by the Patient): Straight or Heterosexual Spiritual care concerns: No Meds Home Medications and Allergies Home Medications Medication Instructions Recorded Confirmed Type aspirin 81 mg tablet,delayed 81 mg PO DAILY 12/03/20 04/06/23 History release (Adult Aspirin Regimen) magnesium gluconate 27 mg 27 mg PO BID 12/03/20 04/06/23 History magnesium (500 mg) tablet (Mag-G) alprazolam 0.25 mg tablet (Xanax) 0.25 mg PO BID PRN anxiety #20 tabs 12/02/21 04/06/23 Rx buspirone 15 mg tablet 15 mg PO TID #270 tabs 05/20/22 04/06/23 Rx nystatin 100,000 unit/gra
[2023-04-06 08:10] VITALS: BP 149/86; PULSE 66; RESP 16; O2SAT 99
[2023-04-06 08:20] VITALS: BP 135/86; PULSE 63; RESP 16; O2SAT 99
[2023-04-06 08:27] VITALS: BP 132/90; PULSE 62; RESP 16; O2SAT 100
--- NOTE | 2023-04-06 13:47 | WPDANESPN ---
Anes - Prog Note Post-Op Date/Time: 04/06/23 13:47 Cardiovascular status: normal Respiratory status: normal Airway patency: baseline Mental status: baseline Post-Op hydration status: normal Vital Signs: Last Vital Signs Temp 36.3 C L 04/06/23 06:57 Pulse 62 04/06/23 08:27 Resp 16 04/06/23 08:27 BP 132/90 04/06/23 08:27 Pulse Ox 100 04/06/23 08:27 O2 Del Method Room Air 04/06/23 08:27 Pain Score (VAS): 0 I/O: Intake & Output 04/05/23 04/06/23 04/06/23 23:59 07:59 15:59 Intake Total 600 Balance 600 Post-procedural complaints: none Patient Feedback: Patient satisfied with anesthetic care. Other Findings: Patient vital signs back to baseline. Patient denies nausea and vomiting. Patient's pain under control. Patient OK for discharge.
== END 2023-04-06 08:51 | disposition home or self-care (01) ==
PROVIDERS: PCP Family Medicine; Visit Provider Internal Medicine Gastroenterology
PROC: 0DJD8ZZ Inspection of Lower Intestinal Tract, Via Natural or Artificial Opening Endoscopic (ICD-10-PCS; CPT 45378; principal; 2023-04-06 08:00)
DX: Z80.0 Family history of malignant neoplasm of digestive organs (principal); D12.3 Benign neoplasm of transverse colon; K64.8 Other hemorrhoids
CPT/HCPCS: 45385

== ENCOUNTER 2023-04-07 10:54 | Outpatient (NON) | payer OTHER, SELFPAY | END 2023-04-07 10:55 | disposition home or self-care (01) | LOC: ANHLAB 10:56 | PROVIDERS: PCP Family Medicine; Visit Provider Internal Medicine Gastroenterology | DX: D12.3 Benign neoplasm of transverse colon (principal) | CPT/HCPCS: 88305 ==

== ENCOUNTER 2023-11-26 09:34 | Outpatient (CLI) | payer OTHER, SELFPAY ==
--- NOTE | ~2023-11-26 | MM_ITS ---
EXAMINATION: MM screening cody BI w mary jane HISTORY: Screening TECHNIQUE: Craniocaudal and mediolateral oblique 3-D tomosynthesis images were obtained and synthetic 2-D images were generated. CAD analysis was submitted and interpreted. COMPARISON: Comparison to multiple prior studies sequentially, with oldest reviewed study dated 09/2019. BREAST PARENCHYMAL COMPOSITION: Not dense: There are scattered areas of fibroglandular density. FINDINGS: There is no evidence of suspicious mass, calcification, or architectural distortion to sugg est malignancy in either breast. There has been no suspicious interval change. IMPRESSION: 1. No mammographic evidence of malignancy. 2. Recommend routine screening mammography in one year. BI-RADS Category 1: Negative Reviewed, dictated and finalized at location B.
== END 2023-11-26 09:35 | disposition home or self-care (01) ==
LOC: ANHIMG 09:35
PROVIDERS: PCP Family Medicine; Visit Provider Family Medicine
DX: Z12.31 Encounter for screening mammogram for malignant neoplasm of breast (principal)
CPT/HCPCS: 77063; 77067

== ENCOUNTER 2024-04-25 12:46 | Outpatient (CLI) | payer OTHER, SELFPAY ==
--- NOTE | 2024-04-25 13:00 | ECG_ITS ---
Test Date: 2024-04-25 13:36:48 Measurements Intervals [place] Rate: 66 P: 40 CO: 193 QRS: 87 QRSD: 96 T: 59 QT: 407 QTc: 428 Interpretive Statements SINUS RHYTHM WITH SINUS ARRHYTHMIA WARNING: DATA QUALITY MAY AFFECT INTERPRETATION No previous ECG available for comparison Electronically Signed On 04-26-2024 15:20:14 [facility] by Allen Bundy M.D.
[2024-04-25 14:00] LABS: Partial Thromboplastin Time 33.1 Seconds (22.3-36.8)
== END 2024-04-25 12:47 | disposition home or self-care (01) ==
LOC: ANHSURGERY 12:51
PROVIDERS: Anesthesiology; PCP Family Medicine; Visit Provider Orthopaedic Surgery
DX: Z01.818 Encounter for other preprocedural examination (principal); I49.8 Other specified cardiac arrhythmias; R74.8 Abnormal levels of other serum enzymes; E78.2 Mixed hyperlipidemia
CPT/HCPCS: 36415; 85610; 85730; 93005

== ENCOUNTER 2024-05-02 00:21 | Day surgery (SDC) | payer OTHER, SELFPAY ==
[2024-04-21 11:42] VITALS: BMI 36.8
--- NOTE | 2024-04-21 11:49 | PC.NURSE ---
Report to the Outpatient Waiting Room, entrance under the green pavilion located off [facility], at time _0800_ on date _[id number]_. Planned Procedure Time: _1000_.? Time changes happen often and if your time is changed the preop area will call you the afternoon before. - You and your visitor will be asked to self-screen and do not enter if you have any COVID symptoms. Please call surgeon if you need to reschedule. - A mask is optional within the hospital at this time. Patients may have clear liquids (water, carbonated beverages, clear teas, apple juice) until 3 hours prior to surgery with a maximum of 20 ounces. - No food from midnight until time of surgery and no smoking. This includes no chewing gum, candy or mints. Take only the following medications with a SIP of water on the morning of surgery: ___Buspirone and Metoprolol DO NOT STOP ANY OF YOUR OTHER PRESCRIPTION MEDICATIONS PRIOR TO SURGERY EXCEPT THE FOLLOWING Medications to discontinue per physician ___Vitamins and supplements ___ Date to take last eozw__[id number]___ Stop Aspirin 04-27-2024 Please no make-up, nail lao, hairspray, perfume, deodorant, or body powder the day of surgery.? No jewelry (including any body piercings) or valuables the day of surgery, leave them at home.? Please take a shower or bath the night before, or the morning of, surgery with an antibacterial soap.? Wear comfortable, loose fitting clothing.? - Jewelry must be removed prior to entering the operating room.? Rings and piercings that are not removed may be cut off. - The hospital will not accept responsibility for valuables.? - Please leave all valuables, including medications, at home the day of surgery. If you are going home after surgery, a licensed otr tanker truck driver must drive you home.? - NO public transportation without another adult if you receive anesthesia. - We recommend that an adult stay with you for 24 hours following discharge. - We also recommend that you do not drive, make important decision, drink alcoholic beverages, or take any drugs that were not prescribed by your health care provider for at least 24 hours after your discharge time. Follow any additional instructions given to you from your surgeon. Telephone instructions given to _Luann__and asked if any additional questions and then verbalized understanding. Patient advised to call surgeon office or pre surgery nurse liaison [phone] if any additional questions.
--- NOTE | 2024-04-28 07:20 | PM.IMHP ---
H&P: HPI History of Present Illness Date/Time: 04/28/24 07:20 Chief Complaint: Patient has catching and locking of her right thumb. She has got pain on the volar aspect of the thumb and pain with manipulation. She has failed conservative treatment. She would like to consider surgical release of the A1 fannie. Review of Systems Musculoskeletal: Musculoskeletal: Reports arthralgias, Reports joint swelling and Reports stiffness [facility] Past Medical History Medical History Abnormal Pap smear of cervix 05/05/13 ascus (+) hpv Anxiety BMI 32.0-32.9,adult BMI 33.0-33.9,adult BMI 36.0-36.9,adult BMI 37.0-37.9, adult BMI greater than 30 Carpal tunnel syndrome, bilateral Essential (primary) hypertension Family hx of colon cancer History of hypertension HPV in female Hx of detention use of blood thinners 81mg aspirin Mixed hyperlipidemia Obesity Screening mammogram, encounter for Trigger thumb, right thumb Surgical History Surgical History History of back surgery 2008- herniated disk repair History of breast biopsy (06/07/18) (R) breast--benign History of carpal tunnel surgery of left wrist left carpal tunnel release June 23, 2022 History of carpal tunnel surgery of right wrist Right carpal tunnel release on 07/07/2022 History of colposcopy with cervical biopsy 10/28/12 QUANG I 05/26/13 chronic cervicitis & squamous metaplasia History of oral surgery 2010--benign growth removed from roof of mouth Family History Family History Mother Family history of malignant neoplasm of breast in first degree relative Breast cancer Cancer Grandparent Hypertension Cerebrovascular accident maternal grandfather Acute myocardial infarction Carcinoma of colon paternal grandfather Cancer Heart disease Father Hypertension PTSD (post-traumatic stress disorder) Alcoholism Depression Sibling Carcinoma of colon Asthma Cancer Other Cancer Daughter Depression Social History Social History Smoking status: Never smoker Second hand tobacco smoke exposure: No Alcohol intake: former Drinks per week: 2 Alcohol use details: Stopped a year ago due to liver issues. 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 (if verbalized by the patient): Female Sexual Orientation (if Verbalized by the Patient): Straight or Heterosexual Spiritual care concerns: No Meds Home Medications and Allergies Home Medications ?Medication ?Instructions ?Recorded ?Confirmed ?Type aspirin 81 mg tablet,delayed 81 mg PO DAILY 12/03/20 04/21/24 History release (Adult Aspirin Regimen) magnesium gluconate 27 mg 27 mg PO BID 12/03/20 04/21/24 History magnesium (500 mg) tablet (Mag-G) nystatin 100,000 unit/gram topical 1 applic topical BID #60 grams 06/13/22 04/21/24 Rx powder nystatin-triamcinolone 100,000 1 applic topical BID #30 grams 06/13/22 04/21/24 Rx unit/g-0.1 % topical cream vitamin E mixed 400 unit capsule 400 unit PO DAILY 01/01/23 04/21/24 History multivitamin (Daily Multi-Vitamin 1 tablet PO DAILY 01/27/23 04/21/24 History tablet) buspirone 15 mg tablet 15 mg PO BID #180 tabs 09/30/23 04/21/24 Rx metoprolol tartrate 50 mg tablet 50 mg PO Q12H #180 tabs 12/23/23 04/21/24 Rx cyclobenzaprine 10 mg tablet 10 mg PO TID PRN muscle spasm #30 03/23/24 04/21/24 Rx tabs lisinopril 10 mg tablet 20 mg (2 x 10 mg) PO DAILY #180 03/23/24 04/21/24 Rx tabs simvastatin 20 mg tablet See Rx Instructions .Route 04/20/24 04/21/24 Rx .COMPLEX #90 tabs biotin 10,000 mcg chewable tablet 10,000 mcg PO DAILY 04/21/24 04/21/24 History (Hair, Skin and Nails (biotin)) Allergies Allergy/AdvReac Type Severity Reaction Status Date / Time amoxicillin Allergy Intermediate Hives Verified 04/21/24 11:39 hydroxyzine Allergy Intermediate Chest Pain Verified 04/21/24 11:39 Exam Narrative: Patient has pain in the volar surface of the right thumb. She has catching and locking mechanical symptoms. Neurologically she is grossly intact. She has pain with any motion. Eyes: General: appearance normal, both eyes and all related structures Neck: Neck: supple Resp: Effort & Inspection: normal respiratory effort Cardio: Rate: regular rate Rhythm: regular rhythm Radiology Reports: Comments: Patient: Luann Garces Results of Diagnostic Exam (Interpreted Today) Interpretation: AP lateral and oblique view right hand demonstrates normal anatomy. No fracture, lesions, or masses are appreciated. Hand X-Ray 03/08/24 Orthopedics Result Report 03/10/24 Lumbar Spine MRI 10/26/19 Assessment and Plan Assessment and plan (1) Trigger thumb, right thumb: Code(s): M65.311 - Trigger thumb, right thumb Status: Acute Assessment and Plan: Patient has a trigger thumb right. It has been unresponsive to conservative treatment consisting of medicine exercises injections etc.. She would like to consider surgical release. She is well aware the fact the neurovascular bundle crossed right over the A1 fannie. Will proceed with release per her request. Discussed risks, benefits, limitations, and alternatives in detail.
[2024-05-02 06:00] VITALS: BP 150/90; PULSE 18; RESP 63; TEMP 36.2; O2SAT 100
[2024-05-02 06:14] VITALS: BMI 37.9
[2024-05-02] MEDS: LACTATED RINGERS 1,000 ML 30 ML IV CONT (06:30)
[2024-05-02] MEDS: KETOROLAC 15 MG/ML VIAL (*BKC) IV PUSH (06:39)
[2024-05-02] MEDS: ACETAMINOPHEN 500 MG TABLET 1000 MG PO (06:39)
--- NOTE | 2024-05-02 06:53 | P.PNAN_ITS ---
Anes - Initial Pre Proc Eval Procedure: Operation Date: 05/02/24 10:00 Proposed Procedures p Release A-1 Soha Right Thumb - Neeraj Cai MD Date/Time: 05/02/24 06:53 Surgeon: Neeraj Cai MD Pre Op Diagnosis: right trigger thumb Patient Data Age: 49 Gender: F Height: 1.68 m Weight: 106.6 kg Last Vital Signs Temp 36.2 C L 05/02/24 06:00 Pulse 18 L 05/02/24 06:00 Resp 63 H 05/02/24 06:00 BP 150/90 H 05/02/24 06:00 Pulse Ox 100 05/02/24 06:00 O2 Del Method Room Air 05/02/24 06:00 Allergies Allergy/AdvReac Type Severity Reaction Status Date / Time amoxicillin Allergy Intermediate Hives Verified 05/02/24 06:13 hydroxyzine Allergy Intermediate Chest Pain Verified 05/02/24 06:13 Home Medications ?Medication ?Instructions ?Recorded ?Confirmed ?Type aspirin 81 mg tablet,delayed 81 mg PO DAILY 12/03/20 05/02/24 History release (Adult Aspirin Regimen) magnesium gluconate 27 mg 27 mg PO BID 12/03/20 05/02/24 History magnesium (500 mg) tablet (Mag-G) nystatin 100,000 unit/gram topical 1 applic topical BID #60 grams 06/13/22 04/21/24 Rx powder nystatin-triamcinolone 100,000 1 applic topical BID #30 grams 06/13/22 04/21/24 Rx unit/g-0.1 % topical cream vitamin E mixed 400 unit capsule 400 unit PO DAILY 01/01/23 05/02/24 History multivitamin (Daily Multi-Vitamin 1 tablet PO DAILY 01/27/23 05/02/24 History tablet) buspirone 15 mg tablet 15 mg PO BID #180 tabs 09/30/23 05/02/24 Rx metoprolol tartrate 50 mg tablet 50 mg PO Q12H #180 tabs 12/23/23 05/02/24 Rx cyclobenzaprine 10 mg tablet 10 mg PO TID PRN muscle spasm #30 03/23/24 04/21/24 Rx tabs lisinopril 10 mg tablet 20 mg (2 x 10 mg) PO DAILY #180 03/23/24 05/02/24 Rx tabs simvastatin 20 mg tablet See Rx Instructions .Route 04/20/24 05/02/24 Rx .COMPLEX #90 tabs biotin 10,000 mcg chewable tablet 10,000 mcg PO DAILY 04/21/24 05/02/24 History (Hair, Skin and Nails (biotin)) Patient hx anesthesia problems: none Family hx anesthesia problems: none Results Review: All pre-operative results and documents have been reviewed as part of the pre- operative evaluation. 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 Mixed hyperlipidemia Obesity Screening mammogram, encounter for Trigger thumb, right thumb Surgical History Surgical History History of back surgery 2008- herniated disk repair History of breast biopsy (06/07/18) (R) breast--benign History of carpal tunnel surgery of left wrist left carpal tunnel release June 23, 2022 History of carpal tunnel surgery of right wrist Right carpal tunnel release on 07/07/2022 History of colposcopy with cervical biopsy 10/28/12 QUANG I 05/26/13 chronic cervicitis & squamous metaplasia History of oral surgery 2010--benign growth removed from roof of mouth Family History Family History Mother Family history of malignant neoplasm of breast in first degree relative Breast cancer Cancer Grandparent Hypertension Cerebrovascular accident maternal grandfather Acute myocardial infarction Carcinoma of colon paternal grandfather Cancer Heart disease Father Hypertension PTSD (post-traumatic stress disorder) Alcoholism Depression Sibling Carcinoma of colon Asthma Cancer Other Cancer Daughter Depression Social History Social History Smoking status: Never smoker Second hand tobacco smoke exposure: No Alcohol intake: former Drinks per week: 2 Alcohol use details: Stopped a year ago due to liver issues. 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 (if verbalized by the patient): Female Sexual Orientation (if Verbalized by the Patient): Straight or Heterosexual Spiritual care concerns: No Anes - Eval Final PreProcedure Day of Procedure 05/02/24 06:53 Patient weight: obese Heart: regular rate and rhythm Lungs: clear to auscultation Airway: Mallampati scale class III Neurological: alert and oriented Last oral intake: >/= 8 hours ASA classification: III Emergent: no Anesthetic plan: proceed Anesthesia type and monitoring: general GIVS and standard monitoring Results Review: All pre-operative results and documents have been reviewed as part of the pre- operative evaluation. Informed Consent: The patient's anesthetic plan and its attendant risks and benefits were discussed with the patient/family/POA. Questions were solicited and answers provided to the satisfaction of the patient/family/POA.
--- NOTE | 2024-05-02 07:01 | WPDHPUPDATE1 ---
History and Physical Update Update Date/Time: 05/02/24 07:01 History and Physical has been reviewed, including an updated exam of the patient. There are NO changes in the patient's condition. Risks, benefits, and alternatives have been discussed and questions answered. Patient agrees to proceed with procedure.
[2024-05-02] MEDS: ceFAZolin 2 GM/D5W 50 ML 2 GM/50 ML BAG IVPB (07:30)
[2024-05-02] MEDS: LIDOCAINE 1% LOCAL INJ 10 ML VIAL INFILTRATE (07:50)
--- NOTE | 2024-05-02 07:52 | P.OP_ITS ---
Procedure Note - Detailed Date of Procedure 05/02/24 Pre-op Diagnosis RIGHT trigger thumb Post-op Diagnosis Same Procedure Performed Release A1 Soha Surgeon Neeraj Cai MD Bench Repair Technician Regis Sorto Anesthesia General Indications Pain and Catching Description of Procedure Patient was right operating room 8. A general anesthetic was administered. She was sterilely prepped and draped in usual manner. Right arm identified and the thickened area nodule in the thumb was palpable. Local infiltrate placed along the proximal palmar crease. Dissection carried down through the skin. At this point the neurovascular bundles were protected and I bluntly dissected down to the tendon. The sheath was released under direct vision and noted to be relatively tight. At this point there was full excursion of the sheath without any impingement. The wound was irrigated hemostasis obtained. Wound was then closed with the 3-0 Prolene. Sterile dressing was applied. Patient left the operating room satisfactory condition. Estimated Blood Loss 1 Complications No immediate complications Condition Stable Disposition PACU [facility] Billing Surgery - Charge Forward: Surgery Billing ([id number] Trigger Thumb)
[2024-05-02 08:02] VITALS: BP 122/77; PULSE 75; RESP 14; O2SAT 96
[2024-05-02 08:30] VITALS: BP 128/81; PULSE 73; RESP 14; O2SAT 97
[2024-05-02 09:00] VITALS: BP 146/90; PULSE 58; RESP 14
== END 2024-05-02 09:18 | disposition home or self-care (01) ==
PROVIDERS: PCP Family Medicine; Visit Provider Orthopaedic Surgery
PROC: (CPT 26055; principal; 2024-05-02 10:00)
DX: M65.311 Trigger thumb, right thumb (principal); E78.2 Mixed hyperlipidemia; I10 Essential (primary) hypertension; F41.9 Anxiety disorder, unspecified; G56.03 Carpal tunnel syndrome, bilateral upper limbs; E66.9 Obesity, unspecified; Z68.37 Body mass index [BMI] 37.0-37.9, adult; Z79.82 Long term (current) use of aspirin; Z98.890 Other specified postprocedural states; Z98.1 Arthrodesis status; Z80.0 Family history of malignant neoplasm of digestive organs; Z80.3 Family history of malignant neoplasm of breast; Z82.49 Family history of ischemic heart disease and other diseases of the circulatory system
CPT/HCPCS: 26055; A9270; J0690; J1885; J2003; J2250; J2704; J3010; J7120

== ENCOUNTER 2024-08-12 15:40 | Emergency (ER) | payer OTHER, SELFPAY ==
[2024-08-12 15:46] VITALS: BP 174/110; PULSE 116; RESP 16; TEMP 38.2; O2SAT 100
--- NOTE | 2024-08-12 16:09 | ED_ITS ---
HPI - URI/Sore Throat General Chief Complaint: Upper Respiratory Infection Stated Complaint: COUGH/BODY ACHES/FEVER/SINUS PRESSURE Time Seen by Provider: 08/12/24 15:50 Source: patient and RN notes reviewed Mode of arrival: ambulatory Limitations: no limitations History of Present Illness HPI Narrative: 49-year-old female presents Express Care complaining of upper respiratory symptoms for 2 days. She reports having congestion, cough, fevers. Patient denies ear pain or sore throat. States her cough is dry hacking. 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 Patient denies any chest pain or shortness of breath. Patient h as a history of hypertension Related Data Home Medications ?Medication ?Instructions ?Recorded ?Confirmed ?Last Taken ?Type aspirin 81 mg tablet,delayed 81 mg PO DAILY 12/03/20 08/12/24 04/27/24 History release (Adult Aspirin Regimen) magnesium gluconate 27 mg 27 mg PO BID 12/03/20 08/12/24 04/27/24 History magnesium (500 mg) tablet (Mag-G) vitamin E mixed 400 unit capsule 400 unit PO DAILY 01/01/23 08/12/24 04/27/24 History multivitamin (Daily Multi-Vitamin 1 tablet PO DAILY 01/27/23 08/12/24 04/27/24 History tablet) biotin 10,000 mcg chewable tablet 10,000 mcg PO DAILY 04/21/24 08/12/24 04/27/24 History (Hair, Skin and Nails (biotin)) Allergies Allergy/AdvReac Type Severity Reaction Status Date / Time amoxicillin Allergy Intermediate Hives Verified 08/12/24 15:47 hydroxyzine Allergy Intermediate Chest Pain Verified 08/12/24 15:47 Review of Systems Review of Systems: CONSTITUTIONAL: Positive for fevers. Negative for chills, or sweats. EYES: Denies visual changes, redness, or discharge. ENT: Denies rhinorrhea, sore throat, or otalgia. Positive for congestion and sinus pressure. CARDIOVASCULAR: Denies chest pain, palpitations, or edema. RESPIRATORY: Positive for cough negative for dyspnea. GASTROINTESTINAL: Denies abdominal pain, nausea, vomiting, or diarrhea. GENITOURINARY: Denies dysuria or hematuria. SKIN: Denies rash or itching. MUSCULOSKELETAL: Denies back pain, joint pain, or myalgia. NEUROLOGIC: Denies headache, numbness, or weakness. PSYCHIATRIC: Denies anxiety or depression. All other systems reviewed are negative, except as documented in HPI. [facility] Past Medical History Medical History Screening mammogram, encounter for BMI 37.0-37.9, adult Family hx of colon cancer BMI 36.0-36.9,adult Trigger thumb, right thumb Obesity BMI greater than 30 History of hypertension Hx of longterm use of blood thinners 81mg aspirin Anxiety HPV in female Abnormal Pap smear of cervix 05/05/13 ascus (+) hpv Carpal tunnel syndrome, bilateral BMI 33.0-33.9,adult BMI 32.0-32.9,adult Essential (primary) hypertension Mixed hyperlipidemia Surgical History Surgical History History of carpal tunnel surgery of right wrist Right carpal tunnel release on 07/07/2022 History of carpal tunnel surgery of left wrist left carpal tunnel release June 23, 2022 History of breast biopsy (06/07/18) (R) breast--benign History of colposcopy with cervical biopsy 10/28/12 QUANG I 05/26/13 chronic cervicitis & squamous metaplasia History of oral surgery 2010--benign growth removed from roof of mouth History of back surgery 2008- herniated disk repair Family History Family History Mother Family history of malignant neoplasm of breast in first degree relative Breast cancer Cancer Grandparent Hypertension Cerebrovascular accident maternal grandfather Acute myocardial infarction Carcinoma of colon paternal grandfather Cancer Heart disease Father Hypertension PTSD (post-traumatic stress disorder) Alcoholism Depression Sibling Carcinoma of colon Asthma Cancer Other Cancer Daughter Depression Social History Social History Smoking status: Never smoker Second hand tobacco smoke exposure: No Alcohol intake: former Drinks per week: 2 Alcohol use details: Stopped a year ago due to liver issues. 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 There is no relevant family history pertinent to the patient complaint. Exam Narrative: GENERAL: This is a well-nourished, well-developed adult, in no apparent distress. They are non ill-appearing, nontoxic appearing. HEAD: normocephalic, atraumatic. EYES: Sclera clear/white. Vision is grossly intact. EARS: External ears normal, auditory canals clear and without drainage, TMs normal without perforation. Hearing grossly intact. NOSE: External nose normal with no obvious nasal discharge, nasal turbinates are erythematous, no rhinorrhea. THROAT: Mucous membranes moist, posterior pharynx with postnasal drip. There is no redness or swelling. Uvula midline NECK: Neck supple, non-tender without lymphadenopathy, masses or thyromegaly. CARDIOVASCULAR: Regular rate and rhythm without murmurs, gallops, or rubs. RESPIRATORY: Clear to auscultation. Breath sounds equal bilaterally. No wheezes, rales, or rhonchi. SKIN: warm, Dry, intact with no suspicious lesions or rash, good texture and turgor. NEURO: awake, alert, and oriented to person, place and time. There were no obvious focal neurologic abnormalities. EXTREMITIES: No joint tenderness, effusion, or edema noted. Course Course Level of Care: Express Care Visit Vital Signs Vital signs: Vital Signs Temperature 100.8 F H 08/12/24 15:46 Pulse Rate 116 H 08/12/24 15:46 Respiratory Rate 16 08/12/24 15:46 Blood Pressure 174/110 H 08/12/24 15:46 Pulse Oximetry 100 08/12/24 15:46 Oxygen Delivery Room Air 08/12/24 15:46 Temperature 100.8 F H 08/12/24 15:46 Pulse Rate 116 H 08/12/24 15:46 Respiratory Rate 16 08/12/24 15:46 Blood Pressure 174/110 H 08/12/24 15:46 Pulse Oximetry 100 08/12/24 15:46 Oxygen Delivery Room Air 08/12/24 15:46 Reviewed MDM - URI/Sore Throat MDM Narrative Medical decision making narrative: Rapid strep is negative. Throat culture pending. COVID and flu tests were negative. Symptoms are likely viral in etiology. Discussed physical exam findings. Advised supportive measures and signs/symptoms to go to the ER. Pt is appropriate for outpt treatment and f/u. Patient blood pressure elevated today. Patient took her antihypertensive medications today. Patient says her blood pressure runs high when she is in a doctor's office. She is currently asymptomatic. Patient states her blood pressures run normal at home. Anticipatory guidance given. Differential Diagnosis Differential diagnosis: Likely upper respiratory infection, viral infection and bronchitis Lab Data Attestation: I reviewed the patient's lab results. Labs: Lab Results 08/12/24 Range/Units 16:28 POC Influenza A Ag Pending POC Influenza B Ag Pending POC SARS CoV-2 Ag Pending POC Grp A Strep Screen Pending Critical Care Time Critical Care Time Critical Care Time: No Discharge Plan Discharge Clinical Impression: Upper respiratory infection Patient Disposition: Home Condition: Stable Instructions: Upper Respiratory Infection (DC) Additional Instructions: Your COVID and flu were negative. Your rapid strep swab was negative today at [facility]. You will be notified in a few days if the culture comes back positive for strep, and appropriate antibiotics will be called in for you at that time. Your symptoms are likely due to a viral illness, which is not treated with antibiotics. Viral symptoms can be present for up to 10-14 days. Take Tylenol or ibuprofen for fever or pain. Rest and stay hydrated. You may take Zyrtec or Claritin [id number] for congestion. You may also use Flonase nasal spray as needed for any nasal congestion. Follow up with your PCP in 7-10 days if symptoms are not improving. Go to the ER immediately if you difficulty breathing or swallowing Patient Language: Nepali Prescriptions: No Action multivitamin [Daily Multi-Vitamin] Tablet 1 tablet PO DAILY magnesium gluconate [Mag-G] 27 mg magnesium (500 mg) tablet 27 mg PO BID aspirin [Adult Aspirin Regimen] 81 mg tablet,delayed release (DR/EC) 81 mg PO DAILY vitamin E mixed 400 unit capsule 400 unit PO DAILY Hair, Skin and Nails (biotin) 10,000 mcg tablet,chewable 10,000 mcg PO DAILY buspirone 15 mg tablet 15 mg PO BID Qty: 180 3RF metoprolol tartrate 50 mg tablet 50 mg PO Q12H Qty: 180 1RF lisinopril 10 mg tablet 20 mg PO DAILY Qty: 180 1RF simvastatin 20 mg tablet See Rx Instructions .ROUTE .COMPLEX Qty: 90 3RF Dose Instruction: TAKE 1 TABLET DAILY AT BEDTIME Rx Instructions: TAKE 1 TABLET DAILY AT BEDTIME cyclobenzaprine 10 mg tablet 10 mg PO TID PRN (Reason: muscle spasm) Qty: 30 3RF Follow-up/Referrals: Chris Carl MD [Primary Care Provider] - Time of Disposition: 16:28
[2024-08-12 16:30] LABS: EDCOVIDSCREEN Negative (Negative); EDINFLUASCREEN Negative (Negative); EDINFLUBSCREEN Negative (Negative); EDSTREPNEGPOS1 Negative (Negative)
== END 2024-08-12 16:33 | disposition home or self-care (01) ==
PROVIDERS: PCP Family Medicine
DX: J06.9 Acute upper respiratory infection, unspecified (principal); Z20.822 Contact with and (suspected) exposure to COVID-19; I10 Essential (primary) hypertension; E78.2 Mixed hyperlipidemia; E66.9 Obesity, unspecified; Z68.37 Body mass index [BMI] 37.0-37.9, adult; Z79.82 Long term (current) use of aspirin
CPT/HCPCS: 87081; 87426; 87804; 87880; 99213; G0463

== ENCOUNTER 2024-09-18 14:43 | Emergency (ER) | payer OTHER, SELFPAY ==
--- NOTE | 2024-09-18 14:55 | ED_ITS ---
HPI - URI/Sore Throat General Chief Complaint: Upper Respiratory Infection Stated Complaint: EARACHE/SORE GLANDS/HEADACHE Time Seen by Provider: 09/18/24 14:58 Source: patient Mode of arrival: ambulatory Limitations: no limitations History of Present Illness HPI Narrative: Patient is a 49-year-old female who presents to the clinic with complaints of a sore throat for 3 days. 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 She has not been taking anything [id number]. Denies any shortness of breath, difficulty swallowing, nausea, vomiting, fevers, or diarrhea. Related Data Home Medications Medication Instructions Recorded Confirmed Last Taken Type aspirin 81 mg tablet,delayed 81 mg PO DAILY 12/03/20 09/18/24 04/27/24 History release (Adult Aspirin Regimen) magnesium gluconate 27 mg 27 mg PO BID 12/03/20 09/18/24 04/27/24 History magnesium (500 mg) tablet (Mag-G) vitamin E mixed 400 unit capsule 400 unit PO DAILY 01/01/23 09/18/24 04/27/24 History multivitamin (Daily Multi-Vitamin 1 tablet PO DAILY 01/27/23 09/18/24 04/27/24 History tablet) biotin 10,000 mcg chewable tablet 10,000 mcg PO DAILY 04/21/24 09/18/24 04/27/24 History (Hair, Skin and Nails (biotin)) Allergies Allergy/AdvReac Type Severity Reaction Status Date / Time amoxicillin Allergy Intermediate Hives Verified 09/18/24 14:45 hydroxyzine Allergy Intermediate Chest Pain Verified 09/18/24 14:45 Review of Systems Review of Systems: CONSTITUTIONAL: Denies body aches, fever, chills, or sweats. EYES: Denies visual changes, redness, or discharge. ENT: Denies rhinorrhea, congestion, or otalgia. Reports sore throat. CARDIOVASCULAR: Denies chest pain, palpitations, or edema. RESPIRATORY: Denies cough or dyspnea. GASTROINTESTINAL: Denies abdominal pain, nausea, vomiting, or diarrhea. GENITOURINARY: Denies dysuria or hematuria. SKIN: Denies rash, itching, or wounds. MUSCULOSKELETAL: Denies back pain, joint pain, or myalgia. NEUROLOGIC: Denies headache, numbness, tingling, or weakness. PSYCH: Denies depression or anxiety. All systems reviewed & are unremarkable except as noted in HPI and below PMFSH Past Medical History Medical History Screening mammogram, encounter for BMI 37.0-37.9, adult Family hx of colon cancer BMI 36.0-36.9,adult Trigger thumb, right thumb Obesity BMI greater than 30 History of hypertension Hx of senior care use of blood thinners 81mg aspirin Anxiety HPV in female Abnormal Pap smear of cervix 05/05/13 ascus (+) hpv Carpal tunnel syndrome, bilateral BMI 33.0-33.9,adult BMI 32.0-32.9,adult Essential (primary) hypertension Mixed hyperlipidemia Surgical History Surgical History History of carpal tunnel surgery of right wrist Right carpal tunnel release on 07/07/2022 History of carpal tunnel surgery of left wrist left carpal tunnel release June 23, 2022 History of breast biopsy (06/07/18) (R) breast--benign History of colposcopy with cervical biopsy 10/28/12 QUANG I 05/26/13 chronic cervicitis & squamous metaplasia History of oral surgery 2010--benign growth removed from roof of mouth History of back surgery 2008- herniated disk repair Family History Family History Mother Family history of malignant neoplasm of breast in first degree relative Breast cancer Cancer Grandparent Hypertension Cerebrovascular accident maternal grandfather Acute myocardial infarction Carcinoma of colon paternal grandfather Cancer Heart disease Father Hypertension PTSD (post-traumatic stress disorder) Alcoholism Depression Sibling Carcinoma of colon Asthma Cancer Other Cancer Daughter Depression Social History Social History Smoking status: Never smoker Second hand tobacco smoke exposure: No Alcohol intake: former Drinks per week: 2 Alcohol use details: Stopped a year ago due to liver issues. 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 Please see nursing chart for further information. There is no relevant family history pertinent to the presenting complaint. Exam Narrative: GENERAL: Well-appearing, well-nourished, and in no acute distress. EYES: EOMI. No redness or drainage. Conjunctivae normal. ENT: Mucous membranes pink and moist. Nares clear. No rhinorrhea. TMs normal bilaterally. Throat Erythematous, tonsillar 2+ without exudate, uvula midline. NECK: Normal AROM. Supple. No lymphadenopathy. CHEST: No respiratory distress. Clear to auscultation. HEART: Regular rate and rhythm. No murmur appreciated. Normal peripheral pulses. ABDOMEN: Soft, nontender, nondistended, normal active bowel sounds. SKIN: Warm, dry, no rash. Capillary refill normal. Normal skin turgor. NEURO: No focal deficits. Alert and oriented x3. Gait steady. PSYCH: Normal affect. No signs of depression or anxiety. Course Course Level of Care: Express Care Visit MDM - URI/Sore Throat MDM Narrative Medical decision making narrative: Discussed physical exam findings. Antibiotic given for strep throat. Advised supportive measures and signs/symptoms to go to the ER. Pt is appropriate for outpt treatment and follow up. Differential Diagnosis Differential diagnosis: Likely upper respiratory infection, viral infection, pharyngitis and other (strep throat) Critical Care Time Critical Care Time Critical Care Time: No Discharge Plan Discharge Clinical Impression: Strep sore throat Patient Disposition: Home Condition: Stable Instructions: Antibiotic Form, Strep Throat (DC) Additional Instructions: Recommendations: Take antibiotic as prescribed. Tylenol every 8 hours as needed for pain/fever Soft foods, cool liquids, warm tea. Gargle with warm saltwater twice a day. Chloraseptic spray and throat lozenges. Rest and stay hydrated. --Follow up with your PCP --Go to the ER immediately if you cannot swallow your saliva, trouble breathi ng/wheezing, throat swelling, pain is persistent and severe Patient Language: Cymraes Prescriptions: New clindamycin HCl [Cleocin HCl] 300 mg capsule 300 mg PO TID 10 Days Qty: 30 0RF No Action multivitamin [Daily Multi-Vitamin] Tablet 1 tablet PO DAILY magnesium gluconate [Mag-G] 27 mg magnesium (500 mg) tablet 27 mg PO BID aspirin [Adult Aspirin Regimen] 81 mg tablet,delayed release (DR/EC) 81 mg PO DAILY vitamin E mixed 400 unit capsule 400 unit PO DAILY Hair, Skin and Nails (biotin) 10,000 mcg tablet,chewable 10,000 mcg PO DAILY buspirone 15 mg tablet 15 mg PO BID Qty: 180 3RF metoprolol tartrate 50 mg tablet 50 mg PO Q12H Qty: 180 1RF lisinopril 10 mg tablet 20 mg PO DAILY Qty: 180 1RF simvastatin 20 mg tablet See Rx Instructions .ROUTE .COMPLEX Qty: 90 3RF Dose Instruction: TAKE 1 TABLET DAILY AT BEDTIME Rx Instructions: TAKE 1 TABLET DAILY AT BEDTIME cyclobenzaprine 10 mg tablet 10 mg PO TID PRN (Reason: muscle spasm) Qty: 30 3RF Follow-up/Referrals: Chris Carl MD [Primary Care Provider] - Stand Alone Forms: Work/School Release IP Time of Disposition: 15:24
[2024-09-18 14:58] VITALS: BP 168/107; PULSE 102; RESP 16; TEMP 36.3; O2SAT 99
[2024-09-18 15:16] LABS: EDCOVIDSCREEN Negative (Negative); EDINFLUASCREEN Negative (Negative); EDINFLUBSCREEN Negative (Negative); EDSTREPNEGPOS1 Positive (Negative)
--- NOTE | 2024-09-18 15:20 | PC.NURSE ---
manual bp right fa 140/100, shoer aware.
== END 2024-09-18 15:29 | disposition home or self-care (01) ==
PROVIDERS: PCP Family Medicine
DX: J02.0 Streptococcal pharyngitis (principal); Z20.822 Contact with and (suspected) exposure to COVID-19; I10 Essential (primary) hypertension; E78.2 Mixed hyperlipidemia; E66.9 Obesity, unspecified; Z68.37 Body mass index [BMI] 37.0-37.9, adult; Z79.82 Long term (current) use of aspirin
CPT/HCPCS: 87426; 87804; 87880; 99213; G0463

== ENCOUNTER 2024-12-20 15:59 | Outpatient (CLI) | payer OTHER, SELFPAY ==
--- NOTE | ~2024-12-20 | MM_ITS ---
EXAMINATION: MM screening cody BI w mary jane HISTORY: Screening mammogram, family history of breast cancer in her mother. TECHNIQUE: Craniocaudal and mediolateral oblique 3-D tomosynthesis images were obtained and synthetic 2-D images were generated. CAD analysis was submitted and interpreted. COMPARISON: 11/26/2023, 07/14/2022, 12/26/2021, 11/07/2020 BREAST PARENCHYMAL COMPOSITION:Not Dense. There are scattered areas of fibroglandular density. FINDINGS: No suspicious mass, calcification, or architectural distortion are identified in either breast to suggest malignancy. There has been no suspicious interval change. IMPRESSION: No mammographic evidence of malignancy. Recommend routine screening mammography in one year. BI-RADS Category 1: Negative Reviewed, dictated and finalized at [facility].
== END 2024-12-20 16:00 | disposition home or self-care (01) ==
LOC: ANHFOHIMG 16:01
PROVIDERS: PCP Family Medicine; Visit Provider Obstetrics & Gynecology
DX: Z12.31 Encounter for screening mammogram for malignant neoplasm of breast (principal)
CPT/HCPCS: 77063; 77067